=== PATIENT | female | born 1995 | race Caucasian/White ===

== ENCOUNTER 2016-10-23 14:32 | Emergency (ER) | payer SELFPAY ==
[~2016-10-23] VITALS: Wt 60.0 kg
[~2016-10-23 14:32] MED LIST: CEPH-443 PO; PHEN-538 PO
[2016-10-23] MEDS ORDERED: PHEN-538 PO (16:27)
[2016-10-23] MEDS ORDERED: NITR-58 PO (16:27)
--- NOTE | 2016-10-23 16:31 | ERD ---
ER Documentation Chief Complaint Date/Time DATE: 10/23/16 TIME: 16:28 Chief Complaint dysuria for the past 2 days. no n/v. mild hematuria per pt HPI This is a 21-year-old female presenting to the emergency department complaining of painful urination, urgency and frequency for the past 3 days. Patient denies any pelvic or abdominal pain. She denies any flank pain or fevers. Patient states that she did note hematuria today. She has not tried any medications. Last menstrual period was October 11 ROS All systems reviewed and are negative except as per history of present illness. Medications Home Meds Active Scripts Phenazopyridine Hcl* (Pyridium*) 200 Mg Tab, 200 MG PO TID, #20 TAB Prov:EILEEN JOYCE PA-C 10/23/16 Nitrofurantoin Monohyd Macrocr* (Macrobid*) 100 Mg Capsr, 100 MG PO BID for 7 Days, CAP Prov:EILEEN JOYCE PA-C 10/23/16 Phenazopyridine Hcl* (Pyridium*) 200 Mg Tab, 200 MG PO TID Y for URINARY PAIN, # 6 TAB Prov:EVERARDO OGDEN MD 08/14/16 Cephalexin* (Keflex*) 500 Mg Capsule, 500 MG PO QID for 7 Days, CAP Prov:EVERARDO OGDEN MD 08/14/16 Allergies Allergies: Coded Allergies: No Known Allergy (Unverified , 10/23/16) PMhx/Soc History of Surgery: No Anesthesia Reaction: No Hx Neurological Disorder: No Hx Respiratory Disorders: No Hx Cardiac Disorders: No Hx Psychiatric Problems: No Hx Miscellaneous Medical Probl: Yes (gastric probems) Hx Alcohol Use: Yes Hx Substance Use: No Hx Tobacco Use: No Smoking Status: Never smoker Physical Exam Vitals Vital Signs Date Time Temp Pulse Resp B/P Pulse Ox O2 Delivery O2 Flow Rate FiO2 10/23/16 14:37 98.7 66 20 121/61 98 Physical Exam General: well-developed/well-nourished, in no apparent distress, non-toxic appearing HENT: NC/AT Eyes: Conjunctiva normal Neck: Supple Pulm: CTA bilaterally, normal breathing CV: Normal S1S2 GI: Soft, non-distended, normal bowel sounds, NTTP on suprapubic region Back: No midline tenderness, no masses, No CVAT Ext: No clubbing, cyanosis, or edema Neuro: Alert and orientated Skin: intact, normal turgor Psych: Normal mood and mentation Procedures/MDM This is a 21-year-old female presenting to the emergency department complaining of dysuria for the past 3 days likely due to acute cystitis with hematuria test negative. Urine dip stick was positive for leukocyte esterase, nitrite and hemoglobin. Urine culture was sent out since it is her second urinary tract infection in last couple months Low suspicion for pyelonephritis or nephrolithiasis due to physical examination and diagnostic testing. Patient is hemodynamically stable for discharge. Prescriptions Macrobid and Pyridium have been given to take as directed. Strict precautions were given to return to the ER if not improving as expected or for any worsening signs and symptoms Departure Diagnosis: Primary Impression: UTI (urinary tract infection) Urinary tract infection type: acute cystitis Hematuria presence: with hematuria Qualified Code: N30.01 - Acute cystitis with hematuria Condition: Stable Patient Instructions: Understanding Urinary Tract Infections (UTIs) Referrals: PRACTICE [place] [address] [facility] [address] [place], [place] [phone] OFFICE FAX [facility] [address] [place], [place] [phone] [address] [place], [place] [phone] ZEV [place]BY [address] [facility] [address] [id number] MY[address] [address] [place] [phone] [address] [place] [address] [place] [phone] [facility] [id number] - W[address] [facility] [phone] [place], [place] [address] [facility]. [address], [facility] [phone] BEVERLEY KILLIAN [address] [place], [place] [phone] [facility] () Usted se ayala hecho un examen mdico de control que le indica que no est en nya condicin que requiera tratamiento urgente en el Departamento de Emergencia. Un estudio ms profundo y el tratamiento de renteria condicin pueden esperar sin ningn riesgo hasta que usted sea atendida/o en el consultorio de renteria mdico o nya cl rosibel. Es responsabilidad suya arreglar nya deepak para el seguimiento del sandy. MANEJO DE CONDICIONES NO URGENTES EN EL FUTURO 1) Si usted tiene un mdico de atencin primaria: Usted debera llamar a renteria mdico de atencin primaria antes de venir al departamento de emergencia. Despus de las horas de consultorio, renteria doctor o renteria asociado/a est disponible por telfono. El mdico o enfermero de scar en el servicio telefnico puede asesorarle por favio medio para atender el problema, o sandy contrario se puede programar nya deepak. 2) Si usted no tiene un mdico de atencin primaria: Llame al mdico o clnica de referencia que aparece abajo bradley las horas de consultorio para hacer nya deepak para que le vean. CLINICAS: [facility] [phone] [facility] [phone] [facility] [phone] [facility] [phone] [facility] [phone] [address] [facility] [phone] [address] Additional Instructions: Visite a renteria mdico maana para un EXAMEN.Regrese a estas instalaciones si no se mejora susan esperbamos o susan le dijimos. [place] toda la medicina kathy y susan se le indic. Regrese a estas instalaciones si no se mejora susan esperbamos o susan le dijimos. EILEEN JOYCE. CITLALLI Oct 23, 2016 16:31
[2016-10-23 16:32] LABS: URINE BLOOD (Dip) POC 3+ (NEGATIVE)
[2016-10-23 16:37] VITALS: BP 120/60; PULSE 78; RESP 20; TEMP 98.7
== END 2016-10-23 16:38 | disposition home or self-care (01) ==
LOC: FTE 14:32
DX: N30.01 Acute cystitis with hematuria (principal)
CPT/HCPCS: 81003; 87086; 99283